=== PATIENT | female | born 1975 | race Caucasian/White ===

== ENCOUNTER 2022-08-07 21:39 | Inpatient (IN) | payer SELFPAY ==
[2022-08-07 22:53] LABS: #Basophils 0.1 10x3/uL (0.0-0.2); #Eosinphils 0.3 10x3/uL (0.0-0.5); #Monocytes 1.3 10x3/uL (0.0-1.1); #Neutrophils 8.2 10x3/uL (1.5-8.4); %Basophils 0.9 % (0.0-2.0); %Eosinophils 1.8 % (0.0-6.0); %Lymphocytes 31.8 % (18.0-47.0); %Monocytes 8.5 % (0.0-10.0); %Neutrophils 54.4 % (40.0-75.0); Hemoglobin 12.6 g/dL (12.0-15.5); Mean Corpuscular HGB CONC 35.5 g/dL (32.0-36.0); Mean Corpuscular Volume 87.2 fl (81.6-98.3); Mean Platelet Volume 9.8 fl (7.4-10.4); Platelet Count 307 10x3/uL (150-450); RBC Distribution Width 15.5 % (11.5-14.5); Red Blood Cell (RBC) Count 4.07 10x6/uL (3.90-5.03); White Blood Cell (WBC) Count 15.1 10x3/uL (3.5-10.5)
[2022-08-07] MEDS ORDERED: Vancomycin 1.5 GRAM/300 ML BAG 1.5 GM in Premix Bag 1 BAG IVPB SCH (23:00)
[2022-08-07 23:08] LABS: Anion Gap 18 mmol/L (10-20); BUN (Urea Nitrogen) 25 mg/dL (7.0-18.7); Calc. Creatinine Clearance 0 mL/min (70-130); Calcium 9.5 mg/dL (7.8-10.44); Carbon Dioxide 20 mmol/L (22-29); Chloride 99 mmol/L (98-107); Estimated GFR 54; Glucose 322 mg/dL (70-105); Magnesium 1.6 mg/dL (1.6-2.6); Potassium 3.8 mmol/L (3.5-5.1); Sodium 133 mmol/L (136-145)
[2022-08-07] MEDS ORDERED: HYDROcodone/Acetaminophen 5/325 mg Tablet ONE (23:16)
[2022-08-07] MEDS ORDERED: Piperacillin/Tazobactam 4.5 GM VIAL ONE (23:16)
[2022-08-07] MEDS ORDERED: Ondansetron PF 4 MG/2 ML Vial ONE (23:24)
[2022-08-08 02:29] VITALS: BMI 31.9
[2022-08-08] MEDS ORDERED: HYDROcodone/Acetaminophen 5/325 mg Tablet PO PRN (02:53)
[2022-08-08] MEDS ORDERED: Senokot S 8.6-50 MG TAB PO PRN (02:53)
[2022-08-08] MEDS ORDERED: HYDROcodone/Acetaminophen 10/325 mg Tablet PO PRN (02:53)
[2022-08-08] MEDS ORDERED: Acetaminophen 325 MG TAB PO PRN (02:53)
[2022-08-08] MEDS ORDERED: Vancomycin HCl 500 MG in Sodium Chloride 0.9% 100 ML IVPB SCH (03:00)
[2022-08-08] MEDS ORDERED: Venlafaxine HCl XR 75 MG CAP PO SCH ×2 (03:15→21:00)
[2022-08-08] MEDS ORDERED: QUEtiapine 25 MG TAB PO SCH ×3 (03:15→21:00)
[2022-08-08] MEDS ORDERED: lamoTRIgine 100 MG TAB PO SCH (03:15)
[2022-08-08] MEDS ORDERED: Carvedilol 25 MG TAB PO SCH (03:15)
[2022-08-08] MEDS ORDERED: Atorvastatin Calcium 40 MG TAB PO SCH ×2 (03:15→21:00)
[2022-08-08 04:05] LABS: #Basophils 0.2 10x3/uL (0.0-0.2); #Eosinphils 0.3 10x3/uL (0.0-0.5); #Monocytes 1.2 10x3/uL (0.0-1.1); #Neutrophils 6.4 10x3/uL (1.5-8.4); %Basophils 1.3 % (0.0-2.0); %Eosinophils 2.6 % (0.0-6.0); %Lymphocytes 35.2 % (18.0-47.0); %Monocytes 9.4 % (0.0-10.0); %Neutrophils 48.9 % (40.0-75.0); Hemoglobin 12.1 g/dL (12.0-15.5); Mean Corpuscular HGB CONC 34.2 g/dL (32.0-36.0); Mean Corpuscular Hemoglobin 30.2 pg (27.0-33.0); Mean Corpuscular Volume 88.3 fl (81.6-98.3); Mean Platelet Volume 10.3 fl (7.4-10.4); Platelet Count 302 10x3/uL (150-450); RBC Distribution Width 15.5 % (11.5-14.5); Red Blood Cell (RBC) Count 4.01 10x6/uL (3.90-5.03); White Blood Cell (WBC) Count 12.9 10x3/uL (3.5-10.5)
[2022-08-08 04:20] LABS: Anion Gap 17 mmol/L (10-20); BUN (Urea Nitrogen) 24 mg/dL (7.0-18.7); Calc. Creatinine Clearance 87 mL/min (70-130); Calcium 9.2 mg/dL (7.8-10.44); Carbon Dioxide 21 mmol/L (22-29); Chloride 101 mmol/L (98-107); Estimated GFR 55; Glucose 361 mg/dL (70-105); Potassium 3.7 mmol/L (3.5-5.1); Sodium 135 mmol/L (136-145)
[2022-08-08] MEDS ORDERED: Dextrose 50% Abboject 50 ML SYRINGE SLOW IVP PRN (05:04)
[2022-08-08] MEDS ORDERED: Dextrose 5% in Water 1,000 ML IV PRN (05:04)
[2022-08-08] MEDS ORDERED: HumaLOG 300 UNITS/3 ML VIAL SC SCH ×4 (05:15→17:00)
[2022-08-08 06:02] LABS: SARS-CoV-2 NAA Rapid Test Not Detected (NotDetected)
[2022-08-08] MEDS: lamoTRIgine 100 MG TAB PO SCH ×2 (08:41→20:47)
[2022-08-08] MEDS: Gabapentin 400 MG CAP PO SCH ×2 (08:41→20:49)
[2022-08-08] MEDS: Carvedilol 25 MG TAB PO SCH ×2 (08:42→16:29)
[2022-08-08] MEDS: metFORMIN 500 MG TAB PO SCH ×2 (08:42→20:48)
[2022-08-08] MEDS: TICAGRELOR 90 MG TABLET PO SCH ×2 (08:42→20:48)
[2022-08-08] MEDS: Piperacillin/Tazobactam 3.375 GM in Sodium Chloride 0.9% 100 ML IVPB SCH ×2 (08:43→16:29)
[2022-08-08] MEDS ORDERED: Aspirin 81 mg Enteric Coated Tablet PO SCH (09:00)
[2022-08-08] MEDS ORDERED: Venlafaxine HCl 37.5 MG TAB PO SCH (09:00)
[2022-08-08] MEDS ORDERED: Losartan Potassium 50 MG TAB PO SCH (09:00)
[2022-08-08] MEDS ORDERED: Lantus 1000 UNITS/10 ML VIAL SC SCH ×2 (09:00→21:00)
[2022-08-08] MEDS ORDERED: Spironolactone 25 MG TAB PO SCH (09:00)
[2022-08-08] MEDS ORDERED: Insulin Regular 300 UNITS/3 ML VIAL SC PRN (11:23)
[2022-08-08] MEDS: Insulin Regular 300 UNITS/3 ML VIAL SC PRN ×2 (11:38→17:41)
[2022-08-08] MEDS ORDERED: VANCOMYCIN 1.25 GM/250 ML BAG 1.25 GM in Premix Bag 1 BAG IVPB SCH (12:00)
[2022-08-08 21:00] VITALS: BP 123/60; TEMP 97.9
[2022-08-08] MEDS ORDERED: Magnesium Oxide 400 MG TAB PO SCH (21:00)
== END 2022-08-08 21:14 | disposition short-term general hospital (02) | DRG 638 ==
LOC: CSHERS 21:39 → CSHTELE 08-08 01:53
PROVIDERS: ADMIT Family Medicine; ATTEND Family Medicine
DX: E11.69 Type 2 diabetes mellitus with other specified complication (principal); M86.8X7 Other osteomyelitis, ankle and foot; E11.40 Type 2 diabetes mellitus with diabetic neuropathy, unspecified; I12.9 Hypertensive chronic kidney disease with stage 1 through stage 4 chronic kidney disease, or unspecified chronic kidney disease; N18.2 Chronic kidney disease, stage 2 (mild); E11.22 Type 2 diabetes mellitus with diabetic chronic kidney disease; Z96.41 Presence of insulin pump (external) (internal); F17.210 Nicotine dependence, cigarettes, uncomplicated; K21.9 Gastro-esophageal reflux disease without esophagitis; E78.5 Hyperlipidemia, unspecified; E11.628 Type 2 diabetes mellitus with other skin complications; L08.9 Local infection of the skin and subcutaneous tissue, unspecified; E11.622 Type 2 diabetes mellitus with other skin ulcer; L98.499 Non-pressure chronic ulcer of skin of other sites with unspecified severity; I25.10 Atherosclerotic heart disease of native coronary artery without angina pectoris; E66.9 Obesity, unspecified; F31.9 Bipolar disorder, unspecified; E11.65 Type 2 diabetes mellitus with hyperglycemia; N17.9 Acute kidney failure, unspecified; Z20.822 Contact with and (suspected) exposure to COVID-19; Z79.4 Long term (current) use of insulin; Z88.8 Allergy status to other drugs, medicaments and biological substances; Z98.890 Other specified postprocedural states; Z90.710 Acquired absence of both cervix and uterus; Z82.49 Family history of ischemic heart disease and other diseases of the circulatory system; Z83.3 Family history of diabetes mellitus; Z95.5 Presence of coronary angioplasty implant and graft; I25.2 Old myocardial infarction; Z91.041 Radiographic dye allergy status; Z79.82 Long term (current) use of aspirin; Z79.899 Other long term (current) drug therapy; Z68.31 Body mass index [BMI] 31.0-31.9, adult
CPT/HCPCS: 36415; 36416; 80048; 83735; 85025; 93005; 93010; 93923; 96365; 96366; 96367; 96375; J1650; J1815; J2405; J2543; J3370; J3371; J3475; J3490; U0002